=== PATIENT | female | born 1970 | race Hispanic/Latino ===

== ENCOUNTER 2020-03-06 09:29 | Day surgery (SDC) | payer OTHER ==
[2020-03-06] VITALS (8 sets, daily range): BP systolic 88–167; BP diastolic 41–98
[~2020-03-06] VITALS: Ht 152.4 cm; Wt 68.5 kg
[2020-03-06] MEDS ORDERED: MAGN30TA2 PO (11:07)
[2020-03-06] MEDS ORDERED: ESTR2TAB PO (11:07)
[2020-03-06] MEDS ORDERED: ATOR10TA69 PO (11:07)
[2020-03-06] MEDS ORDERED: SODIUM CHLORIDE 0.9% 1000ML 1,000 ML IV ONE (11:10)
[2020-03-06] MEDS ORDERED: PROPOFOL 10 MG/ML 20ML VIAL IV ONE ×2 (11:23)
== END 2020-03-06 13:10 | disposition home or self-care (01) ==
LOC: DAH 09:29 → ENDO 09:29
PROVIDERS: ATTEND Internal Medicine
DX: R19.4 Change in bowel habit (principal); K31.89 Other diseases of stomach and duodenum; K64.0 First degree hemorrhoids; K29.50 Unspecified chronic gastritis without bleeding; K30 Functional dyspepsia
CPT/HCPCS: 43239; 45380; A4215; A4221; A4222; A4223; A4606; A4620; A4657; A4663; J2704 ×2; J7030